=== PATIENT | female | born 1945 | race Hispanic/Latino ===

== ENCOUNTER 2018-01-27 09:23 | Emergency (ER) | payer MEDICARE ==
[2018-01-27 09:39] VITALS: BP 114/66
--- NOTE | 2018-01-27 10:41 | Emergency Department Report ---
ED ENT HPI - General Chief complaint: Dental/Oral Stated complaint: ORAL DISCOLORATION Time Seen by Provider: 01/27/18 10:17 Source: patient Mode of arrival: Ambulatory Limitations: No Limitations - History of Present Illness Initial comments: 72-year-old female with a past medical history [facility] complaining of discoloration and possible "broken blood vessels" under her tongue 1 month. Patient also had been pain when she eats or drinks anything on the right side of her jaw radiating to her right ear. Patient denies fever or trauma. Patient saw her PMD about this issue and she is a long-time smoker trying to cut down. - Related Data Allergies Allergy/AdvReac Type Severity Reaction Status Date / Time Sulfa (Sulfonamide Allergy Hives Verified 01/27/18 09:39 Antibiotics) ED Dental HPI - General Chief complaint: Dental/Oral Stated complaint: ORAL DISCOLORATION Time Seen by Provider: 01/27/18 10:17 Source: patient Mode of arrival: Ambulatory Limitations: No Limitations - Related Data Allergies Allergy/AdvReac Type Severity Reaction Status Date / Time Sulfa (Sulfonamide Allergy Hives Verified 01/27/18 09:39 Antibiotics) ED Review of Systems ROS: Stated complaint: ORAL DISCOLORATION Other details as noted in HPI Comment: All other systems reviewed and negative ED Past Medical Hx - Past Medical History Additional medical history: Thyroid disease - Surgical History Past Surgical History?: Yes Additional Surgical History: Hip replacement - Social History Smoking Status: Current Every Day Smoker Substance Use Type: None ED Physical Exam - General Limitations: No Limitations - Other Other exam information: General: No limitations, patient is alert in no acute distress Head exam: Atraumatic, normocephalic Eyes exam: Normal appearance ENT: Moist mucous membrane, dilated blood vessels under the tongue. Right ear TM with good light reflex. Mild tenderness at the right TMJ joint. Neck exam: Normal inspection, full range of motion, no meningismus nontender Respiratory exam: Clear to auscultation bilateral, no wheezes, rales, crackles Cardiovascular: Normal rate and rhythm, normal heart sounds Abdomen: Soft, nondistended, and nontender, with normal bowel sounds, no rebound, or guarding Extremity: Full range of motion normal inspection no deformity Back: Normal Inspection, full range of motion, no tenderness Neurologic: Alert, oriented x3, cranial nerves intact, no motor or sensory deficit Psychiatric: normal affect, normal mood Skin: Warm, dry, intact ED Course Vital Signs 01/27/18 09:36 Temperature 97.6 F Pulse Rate 81 Respiratory 16 Rate Blood Pressure 114/66 O2 Sat by Pulse 99 Oximetry ED Medical Decision Making - Medical Decision Making Given patient's his smoking history she'll be referred to ENT for motor examination for ongoing right-sided jaw pain. No acute infection or airway compromise at this time. - Differential Diagnosis oral cancer, trigeminal neuralgia, TMJ, dental pain Critical Care Time: No Critical care attestation.: If time is entered above; I have spent that time in minutes in the direct care of this critically ill patient, excluding procedure time. ED Disposition Clinical Impression: Mouth pain Disposition: TO HOME OR SELFCARE Is pt being admited?: No Does the pt Need Aspirin: No Condition: Stable Instructions: Temporomandibular Disorder (ED) Additional Instructions: Follow-up with your primary care doctor in either ENT doctor provider or the ENT doctor of your choice. Return is symptoms worsen as indicated by your discharge instructions. Referrals: RIVAS CELESTIN MD [Primary Care Provider] - 3-5 Days PAIGE BLACKBURN MD [Staff Physician] - 3-5 Days (ENT) GELY MOROCHO MD [Staff Physician] - 3-5 Days (ENT) Time of Disposition: 10:42
== END 2018-01-27 10:53 | disposition home or self-care (01) ==
LOC: ED 09:23
DX: K13.79 Other lesions of oral mucosa (principal); M26.621 Arthralgia of right temporomandibular joint; F17.200 Nicotine dependence, unspecified, uncomplicated; E07.9 Disorder of thyroid, unspecified; Z88.2 Allergy status to sulfonamides
CPT/HCPCS: 99282